=== PATIENT | female | born 1995 | race American Indian/Alaskan Native ===

== ENCOUNTER 2018-10-14 10:47 | Emergency (ER) | payer OTHER ==
[~2018-10-14] VITALS: Ht 182.9 cm; Wt 72.7 kg
--- OUTSIDE RECORDS SUMMARY | ~2018-10-14 | XMS | Clinical Summary ---
Demographics + + + | Address | [address] | | | [place] [address] | + + + | Home Phone | | + + + | Preferred Language | Unknown | + + + | Marital Status | Single | + + + | Yazidi Affiliation | NON | + + + | Race | White | + + + | Ethnic Group | Not or | + + + Author + + + | Author | [facility] | + + + | Organization | [facility] | + + + | Address | Unknown | + + + | Phone | Unavailable | + + + Support + + + + + | Name | Relationship | Address | Phone | + + + + + | Pamela Andrew | ECON | [address] | | | | | [place] [address] | | + + + + + Care Team Providers + +------+ + | Care Photograph Inspector Name | Role | Phone | + +------+ + | Fanny Jade MD | PP | | + +------+ + Source Comments TORIBIO is fully live on both [facility] Ambulatory and [facility] InPatient.[facility] Allergies No Known Allergies Current Medications + + +---------+---------+------+------+-------+ | Prescription | Sig. | Disp. | Refills | Star | End | Statu | | | | | | t | Date | s | | | | | | Date | | | + + +---------+---------+------+------+-------+ | INSULIN ASPART | Inject under the | | | | | Activ | | (NOVOLOG SUBQ) | skin (SUBC). | | | | | e | + + +---------+---------+------+------+-------+ | cholecalciferol, | Take 5,000 Units by | | | | | Activ | | Vitamin D3, 1,000 | mouth once daily. | | | | | e | | unit oral tablet | | | | | | | + + +---------+---------+------+------+-------+ | gabapentin 300 mg | Take 1 capsule by | 20 | 0 | 04/1 | | Activ | | oral capsule | mouth three times | capsule | | 8/20 | | e | | | daily. Double dose | | | 16 | | | | | in 1 week | | | | | | + + +---------+---------+------+------+-------+ | DULoxetine 60 mg | Take 60 mg by mouth | | | | | Activ | | oral capsule,delayed | two times daily. | | | | | e | | release(DR/EC) | | | | | | | + + +---------+---------+------+------+-------+ | pyridoxine, | Take 50 mg by mouth | | | | | Activ | | vitamin B6, 25 mg | two times daily. | | | | | e | | oral tablet | | | | | | | + + +---------+---------+------+------+-------+ | LORazepam 1 mg | Take 1 mg by mouth | | | 08/0 | | Activ | | oral tablet | once daily at | | | 920 | | e | | | bedtime. | | | 16 | | | + + +---------+---------+------+------+-------+ | nortriptyline 25 | Take 3 capsules by | | | 08/1 | | Activ | | mg oral capsule | mouth once daily at | | | 20 | | e | | | bedtime. | | | 16 | | | + + +---------+---------+------+------+-------+ | insulin aspart | Inject under the | | | | | Activ | | (NOVOLOG FLEXPEN) | skin (SUBC) three | | | | | e | | 100 unit/mL | times daily before | | | | | | | subcutaneous insulin | meals. Approx 20 | | | | | | | pen | units daily | | | | | | + + +---------+---------+------+------+-------+ | insulin degludec | Inject 27 Units | 10 mL | 11 | 09/04 | | Activ | | (TRESIBA FLEXTOUCH | under the skin | | | 08/22 | | e | | U-100) 100 unit/mL | (SUBC) once daily. | | | 18 | | | | (3 mL) subcutaneous | | | | | | | | insulin | | | | | | | | penIndications: | | | | | | | | Uncontrolled type 1 | | | | | | | | diabetes mellitus | | | | | | | | with hyperglycemia | | | | | | | | ([facility]) | | | | | | | + + +---------+---------+------+------+-------+ Active Problems + + + | Problem | Noted Date | + + + | Tachycardia | 03/14/2016 | + + + Family History + + +------+ + | Medical History | Relation | Name | Comments | + + +------+ + | Diabetes | Aunt | | | + + +------+ + + +------+--------+ + | Relation | Name | Status | Comments | + +------+--------+ + | Aunt | | | | + +------+--------+ + Social History + +-------+ +--------+------+ | Tobacco Use | Types | Packs/Day | Years | Date | | | | | Used | | + +-------+ +--------+------+ | Never Smoker | | | | | + +-------+ +--------+------+ + +---+---+---+ | Smokeless Tobacco: | | | | | Never Used | | | | + +---+---+---+ + + +---------+ + | Alcohol Use | Drinks/We | oz/Week | Comments | | | ek | | | + + +---------+ + | No | | | | + + +---------+ + + + + | Sex Assigned at | Date Recorded | | | | + + + | Not on file | | + + + Last Filed Vital Signs + + + + | Vital Sign | Reading | Time Taken | + + + + | Blood Pressure | 128/81 | 09/04/2016 1:34 PM PST | + + + + | Pulse | 120 | 09/04/2016 1:34 PM PST | + + + + | Temperature | 36.8 C (98.2 F) | 03/14/2016 3:08 PM PDT | + + + + | Respiratory Rate | 20 | 11/19/2015 8:34 PM PDT | + + + + | Oxygen Saturation | 98% | 03/14/2016 3:08 PM PDT | + + + + | Inhaled Oxygen | - | - | | Concentration | | | + + + + | Weight | 72.6 kg (160 lb) | 09/04/2016 1:34 PM PST | + + + + | Height | 180.3 cm (5' 11") | 09/04/2016 1:34 PM PST | + + + + | Body Mass Index | 22.32 | 09/04/2016 1:34 PM PST | + + + + Plan of Treatment + + + + + | Health Maintenance | Due Date | Last Done | Comments | + + + + + | PPSV PNEUMOCOCCAL | | | | | VACCINE | 7 | | | + + + + + | Influenza (Flu) | | | | | vaccination (#1) | 8 | | | + + + + + Results Not on filefrom Last 3 Months Insurance + +--------+ +--------+ + + | Payer | Benefi | Subscriber | Type | Phone | Address | | | t Plan | ID | | | | | | / | | | | | | | Group | | | | | + +--------+ +--------+ + + | [place] | [place] | xxxxxxxx | Medica | [phone] [address] [address] | | | PLUS | | id | [phone] | [place] [address] | | | OPEN | | | | | | | CARD | | | | | + +--------+ +--------+ + + | [facility] | [place] | [phone] | Agency | | | | SERVICE | | | | | | | | HEALTH | | | | | | | | | | | | | | SERVIC | | | | | | | E | | | | | + +--------+ +--------+ + + + +--------+ +--------+ + + | Guarantor Name | Accoun | Relation to | Date | Phone | Billing Address | | | t Type | Patient | of | | | | | | | | | | + +--------+ +--------+ + + | NADER DESAI | Person | Self | [birth year] Home: | [address] | | | al/Fam | | 1994 | [phone] | [place] | | | [place] | | | [phone] | + +--------+ +--------+ + +
--- OUTSIDE RECORDS SUMMARY | ~2018-10-14 | XMS | Clinical Summary ---
Demographics + + + | Address | [address] | | | [place] [address] | + + + | Home Phone | | + + + | Preferred Language | Unknown | + + + | Marital Status | Single | + + + | Hinduism Affiliation | NON | + + + [...] + | Pamela Andrew | ECON | [address] | | | | | [place] [address] | | + + + + + Care Team Providers + +------+ + | Care Supervisor Electric Name | Role | Phone | + +------+ + | Fanny Jade MD | PP | | + +------+ + Source Comments TORIBIO is fully live on both [facility] Ambulatory and [facility] InPatient.[facility] Allergies No Known Allergies Current Medications + [...] | | | | | | | ([facility]) | | | | | | | [...] | Medica | [phone] | [address] [address] | | | PLUS | | id | [phone] | [place] [address] | | | OPEN | | | | | | | CARD | | | | | + +--------+ +--------+ + + | [facility] | [place] | [phone] | Agency | | | [...] | Self | [birth year] | Home: | [address] | | | al/Fam | | 1994 | [phone] | [place] | | | [place] | | | [phone] | + +--------+ +--------+ + +
[~2018-10-14 10:47] MED LIST: ATIVAN1 MG PO; CYMBALTA60 MG PO; LEVAQUIN750 MG PO; LEVEMIR100 UNIT/1 SUB-Q; MAPAP500 M1 PO; NEURONTIN300 MG PO; NOVOLOG100 UNIT/1 SUB-Q; PAMELOR75 MG PO; PYRIDOXINE HCL50 MG PO
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
[2018-10-14] MEDS ORDERED: REGLAN10 MG PO (13:09)
== END 2018-10-14 13:22 | disposition home or self-care (01) ==
LOC: ED 10:47
DX: E10.65 Type 1 diabetes mellitus with hyperglycemia (principal); R11.2 Nausea with vomiting, unspecified; Z79.899 Other long term (current) drug therapy
CPT/HCPCS: 80053; 81001; 82010; 82150; 82803; 83690; 84703; 85025; 96365; 96375; 96376; 99284-25; J1815; J2765; J7030

== ENCOUNTER 2018-11-24 19:04 | Observation (INO) | payer OTHER ==
[~2018-11-24] VITALS: Ht 182.9 cm; Wt 71.1 kg
--- OUTSIDE RECORDS SUMMARY | ~2018-11-24 | XMS | Encounter Summary ---
Demographics + + + | Address | [address] | | | [place] [address] | + + + | Home Phone | | + + + | Preferred Language | Unknown | + + + | Marital Status | Single | + + + | Tenriism Affiliation | NON | + + + | Race | White | + + + | Ethnic Group | Not or | + + + Author + + + | Author | [facility] | + + + | Organization | [facility] | + + + | Address | Unknown | + + + | Phone | Unavailable | + + + Support + + + + + | Name | Relationship | Address | Phone | + + + + + | Pamela Andrew | ECON | [address] | | | | | [place] [address] | | + + + + + Care Team Providers + +------+ + | Care Litigation Specialist Name | Role | Phone | + +------+ + | Fanny Jade MD | PCP | | + +------+ + Reason for Visit + + + | Reason | Comments | + + + | Refill Request | [facility] | + + + Encounter Details +--------+--------+ + + + | Date | Type | Department | Care Team | Description | +--------+--------+ + + + | 11/23/ | Refill | Harry Le | Josephine Nichols MD | Refill Request | | 2019 | | [facility] | [address] | ([facility] ) | | | | Center at [facility] | [address] [facility], | | | | | Pav[address] | [place] [address] | | | | | [facility] | [phone] | | | | | Road Physicians | | | | | | [address] | | | | | | Physicians Pavilion | | | | | | [place], [place] | | | | | | [address] | | | | | | [phone] | | | +--------+--------+ + + + Social History + +-------+ +--------+------+ | [...] on file | | + + + as of this encounter Plan of Treatment Not on fileas of this encounter Visit Diagnoses + + | Diagnosis | + + | Uncontrolled type 1 diabetes mellitus with hyperglycemia (HCC) | + +"
--- OUTSIDE RECORDS SUMMARY | ~2018-11-24 | XMS | Encounter Summary ---
Demographics + + + | Address | [address] | | | [place] [address] | + + + | Home Phone | | + + + | Preferred Language | Unknown | + + + | Marital Status | Single | + + + | Denominational Affiliation | NON | + + + | Race | White | + + + | Ethnic Group | Not or | + + + Author + + + | Author | [facility] | + + + | Organization | [facility] | + + + | Address | Unknown | + + + | Phone | Unavailable | + + + Support + + + + + | Name | Relationship | Address | Phone | + + + + + | Pamela Andrew | ECON | [address] | | | | | [place] [address] | | + + + + + Care Team Providers + +------+ + | Care Mma Fighter Name | Role | Phone | + [...] 2019 | | [facility] | [address] [facility] | (TRESIBA FLEXTOUCH ) | | | | Center at [facility] | Park [facility], | | | | | Pav[address] | [place] [address] | | | | | [facility] | [phone] | | | | | Road Physicians | | | | | | [address] | | | | | | Physicians Pavilion | | | | | | [place], [place] | | | | | | [address] | | | | | | [phone] | | | +--------+--------+ + + + [...]
--- OUTSIDE RECORDS SUMMARY | ~2018-11-24 | XMS | Clinical Summary ---
Demographics + + + | Address | [address] | | | [place] [address] | + + + | Home Phone | | + + + | Preferred Language | Unknown | + + + | Marital Status | Single | + + + | Anglican Affiliation | NON | + + + [...] + | Pamela Andrew | ECON | [address] | | | | | [place] [address] | | + + + + + Care Team Providers + +------+ + | Care Cloth Examiner Name | Role | Phone | + +------+ + | Fanny Jade MD | PP | | + +------+ + Source Comments TORIBIO is fully live on both [facility] Ambulatory and [facility] InPatient.[facility] Allergies No Known Allergies Current Medications + [...] insulin degludec | Inject 27 Units | 15 mL | 0 | 04/2 | | Activ | | (TRESIBA FLEXTOUCH | under the skin | | | /20 | | e | | U-100) 100 unit/mL | (SUBC) once daily. | | | 19 | | | | (3 mL) subcutaneous [...] | | | | | | | ([facility]) | | | | | | | + + +---------+---------+------+------+-------+ Active Problems + + + | Problem | Noted Date | + + + | Tachycardia | 03/14/2016 | + + + Encounters +--------+--------+ + + + | Date | Type | Specialty | Care Team | Description | +--------+--------+ + + + | 11/23/ | Refill | | Josephine Nichols MD | Refill Request | | 2018 | | | | ([facility] ) | +--------+--------+ + + + from Last 3 Months Family History + + +------+ + | [...] | Medica | [phone] | [address] [address] | | | PLUS | | id | [phone] | [place] [address] | | | OPEN | | | | | | | CARD | | | | | + +--------+ +--------+ + + | [facility] | | [phone] | Agency | | | [...] | Self | [birth year] | Home: | [address] | | | [place] | | 1994 | [phone] | [place] | | | [place] | | | [phone] | + +--------+ +--------+ + +
--- OUTSIDE RECORDS SUMMARY | ~2018-11-24 | XMS | Encounter Summary ---
Demographics + + + | Address | [address] | | | [place] [address] | + + + | Home Phone | | + + + | Preferred Language | Unknown | + + + | Marital Status | Single | + + + | Hindu Affiliation | NON | + + + | Race | White | + + + | Ethnic Group | Not or | + + + Author + + + | Author | [facility] | + + + | Organization | [facility] | + + + | Address | Unknown | + + + | Phone | Unavailable | + + + Support + + + + + | Name | Relationship | Address | Phone | + + + + + | Pamela Andrew | ECON | [address] | | | | | [place] [address] | | + + + + + Care Team Providers + +------+ + | Care Continuous Improvement Engineer Name | Role | Phone | + [...] 2019 | | [facility] | [address] [facility] | (TRESIBA FLEXTOUCH ) | | | | Center at [facility] | Park [facility], | | | | | Pav[address] | [place] [address] | | | | | [facility] | [phone] | | | | | Road Physicians | | | | | | [address] | | | | | | Physicians Pavilion | | | | | | [place], [place] | | | | | | [address] | | | | | | [phone] | | | +--------+--------+ + + + [...]
--- OUTSIDE RECORDS SUMMARY | ~2018-11-24 | XMS | Clinical Summary ---
Demographics + + + | Address | [address] | | | [place] [address] | + + + | Home Phone | | + + + | Preferred Language | Unknown | + + + | Marital Status | Single | + + + | Moravian Affiliation | NON | + + + [...] + | Pamela Andrew | ECON | [address] | | | | | [place] [address] | | + + + + + Care Team Providers + +------+ + | Care Crm Solution Architect Name | Role | Phone | + +------+ + | Fanny Jade MD | PP | | + +------+ + Source Comments TORIBIO is fully live on both [facility] Ambulatory and [facility] InPatient.[facility] Allergies No Known Allergies Current Medications [...] | | | | | ([facility]) | | | | | | | [...] | Medica | [phone] | [address] [address] | | | PLUS | | id | [phone] | [place] [address] | | | OPEN | | | | | | | CARD | | | | | + +--------+ +--------+ + + | [facility] | | [phone] | Agency | [...] | Self | [birth year] | Home: | [address] | | | [place] | | 1994 | [phone] | [place] | | | [place] | | | [phone] | [phone] | + +--------+ +--------+ + +
--- OUTSIDE RECORDS SUMMARY | ~2018-11-24 | XMS | Clinical Summary ---
Demographics + + + | Address | [address] | | | [place] [address] | + + + | Home Phone | | + + + | Preferred Language | Unknown | + + + | Marital Status | Single | + + + | Orthodox Affiliation | NON | + + + [...] + | Pamela Andrew | ECON | [address] | | | | | [place] [address] | | + + + + + Care Team Providers + +------+ + | Care Guest Services Ambassador Name | Role | Phone | + +------+ + | Fanny Jade MD | PP | | + +------+ + Source Comments TORIBIO is fully live on both [facility] Ambulatory and [facility] InPatient.[facility] Allergies No Known Allergies Current [...] | | | | | | | ([facility]) | | | | | | [...] | Medica | [phone] | [address] [address] | | | PLUS | | id | [phone] | [place] [address] | | | OPEN | | | | | | | CARD | | | | | + +--------+ +--------+ + + | [facility] | | [phone] | Agency | [...] | Self | [birth year] | Home: | [address] | | | [place] | | 1994 | [phone] | [place] | | | [place] | | | [phone] | + +--------+ +--------+ + +
[~2018-11-24 19:04] MED LIST changes: +REGLAN10 MG PO
--- NOTE | 2018-11-24 22:30 | NUR ---
Patient arrived to unit via stretcher. Patient transfered self to bed with SBA. Alert and oriented x4, drowsy. HR elevated in 120s and 130s, denies feeling SOB or light-headed. Patien is tachypneic with RR between 26 and 34, shallow breaths, lungs are clear throughout all finley, 100% on room air. Reports 6/10 abdominal pain and nausea, PRN IV reglan given per EMAR. Skin intact, abrasion noted to right hand, scabbed over. IV site intact, IVF infusing at 250 cc/hr per order, insulin gtt infusing at 3.6 units/hr from ED.
--- NOTE | 2018-11-24 23:30 | NUR ---
CBG 333, insulin gtt titrated to 2.5 units/hr. Denies needs at this time, HR remains between 110 and 120. Call light within reach.
--- NOTE | 2018-11-25 00:01 | NUR ---
PT RETCHING IN BED, C/O NAUSEA, DISCUSSED WITH PT'S PRIMARY RN STACI, PRN ATIVAN GIVEN PER EMAR RELATED TO NAUSEA, PT RESTING IN BED, VSS, ON RA, IV FLUIDS/INSULIN DRIP INFUSING PER EMAR WNL, PT AOX4, CALL LIGHT WITHIN REACH. FALL PRECAUTIONS IN PLACE. FAMILY AT BEDSIDE.
--- NOTE | 2018-11-25 00:30 | NUR ---
CBG 259, insulin gtt titrated to 2.1 units/hr. Patient remains resftul with eyes closed. Assessment done, no changes from previous, HR remains between 110 and 120. Reports that abdominal pain and nausea are improved, denies needs at this time. Call light within reach.
--- NOTE | 2018-11-25 01:30 | NUR ---
CBG 246, insulin gtt titrated to 1.7 units/hr. Patient is restful with eyes closed, breathing is even and unlabored, heart rate remains between 110 and 120. Denies needs at this time. Call light within reach.
--- NOTE | 2018-11-25 02:30 | NUR ---
Patient ambulated to bathroom with SBA, gait steady. Now resting in bed again, breathing is even and unlabored. HR elevated to 150s and 160s with ambulation, denies feeling light-headed, denies SOB with activity. CBG was 186, insulin gtt titrated to 1.2 units/hr, switching IVF to D5% 1/2 NS with 20 of potassium at 250 cc/hr per order. Patient states that abdominal pain is improving slowly, also reports mild nausea. Denies needs at this time. Call light within reach.
--- NOTE | 2018-11-25 03:30 | NUR ---
Updated Dr. Pittman about patient's 0200 labs, IVF to be changed to D5% 1/2NS at 250 cc/hr. CBG was 222, insulin gtt titrated to 3.4 units/hr, also gave PRN reglan IV for nausea. Patient denies further needs. Call light within reach.
--- NOTE | 2018-11-25 04:38 | NUR ---
Patient restful with eyes closed, breathing is even and unlaobred, HR 117. CBG 233, insulin gtt titrated to 5.1 units/hr. Call light within reach.
--- NOTE | 2018-11-25 05:38 | NUR ---
CBG 235, insulin gtt titrated to 6.8 units/hr, patient remains restful with eyes closed. Call light within each, IVF infusing per order.
--- NOTE | 2018-11-25 09:00 | NUR ---
in to do pts case management assessment, pt sleeping. will return later.
--- NOTE | 2018-11-25 11:57 | NUR ---
IN TO SPEAK WITH PT, PT CONTINUES TO SLEEP. SPOKE WITH PTS SIGNIFICANT OTHER. SHE DENIES ANY NEEDS AT HOME. STATES THAT THE NURSING STAFF HAVE GOTTEN HER ALL OF THE MEDICATIONS SHE WILL NEED AT HOME.
[2018-11-25] MEDS ORDERED: NOVOLOG100 UNIT/1 SUB-Q (12:24)
[2018-11-25] MEDS ORDERED: TRESIBA100 UNIT/1 SUB-Q (12:25)
[2018-11-25] MEDS ORDERED: INSULIN SYRING1 EA25 MISC (12:25)
== END 2018-11-25 13:50 | disposition home or self-care (01) ==
LOC: ED 19:04 → CCU 19:05
PROVIDERS: ADMIT Internal Medicine
DX: E10.10 Type 1 diabetes mellitus with ketoacidosis without coma (principal); E10.42 Type 1 diabetes mellitus with diabetic polyneuropathy; Z88.8 Allergy status to other drugs, medicaments and biological substances; Z79.4 Long term (current) use of insulin; Z79.899 Other long term (current) drug therapy
CPT/HCPCS: 36415; 80048; 80053; 81001; 82010; 82800; 83036; 83690; 83735; 84703; 85025; 96361; 96372; 96374; 96375; 96376; 99285-25; C9113; G0378; J1170; J1200; J1650; J1815; J2060; J2765; J7030; J7042; J7120

== ENCOUNTER 2019-08-19 08:04 | Emergency (ER) | payer OTHER ==
[~2019-08-19] VITALS: Ht 182.9 cm; Wt 71.1 kg
[~2019-08-19 08:04] MED LIST changes: +INSULIN SYRING1 EA25 MISC; +TRESIBA100 UNIT/1 SUB-Q
[2019-08-19] MEDS ORDERED: REGLAN10 MG PO (13:38)
== END 2019-08-19 14:40 | disposition home or self-care (01) ==
LOC: ED 08:04
DX: K29.00 Acute gastritis without bleeding (principal); E11.9 Type 2 diabetes mellitus without complications; Z88.8 Allergy status to other drugs, medicaments and biological substances; Z79.899 Other long term (current) drug therapy; Z79.4 Long term (current) use of insulin
CPT/HCPCS: 76705; 96361; 99284-25; C9113; J1815; J2060; J2765; J7030

== ENCOUNTER 2019-09-11 14:12 | Observation (INO) | payer OTHER ==
[~2019-09-11] VITALS: Ht 182.9 cm; Wt 71.0 kg
--- OUTSIDE RECORDS SUMMARY | 2019-09-11 14:16 | XMS ---
PreManage Notification: NADER DESAI Security Merchandise Presentation Associate Events No recent Security Events currently on file CRITERIA MET - [facility] - 2 Visits in 30 Days CARE PROVIDERS [facility] Primary [facility] PHONE: Unknown [facility] Primary Care 08/27/2015-Current PHONE: [phone] [facility] Care 12/01/2015-[facility] PHONE: Unknown Edi has no Care Guidelines for this patient. E.D. VISIT COUNT (12 MO.) 3 [place] Mal[place] 4 BORIS Velasquez TOTAL 7 NOTE: Visits indicate total known visits. ED/UCC VISIT TRACKING (12 MO.) 09/11/2019 14:13 [place] TYPE: Emergency COMPLAINT: - SWALLOWING PROBLEM, NAUSEA 08/19/2019 08:04 [place] TYPE: Emergency COMPLAINT: - VOMITING DIAGNOSES: - 1 Type 2 diabetes mellitus without complications - Nausea with vomiting, unspecified - Acute gastritis without bleeding - assisted (current) use of insulin - Other rodent exterminator (current) drug therapy - Allergy status to oth drug/meds/biol subst status 05/15/2019 17:57 [place] TYPE: Emergency DIAGNOSES: - 1 Type 2 diabetes mellitus with ketoacidosis without coma 01/12/2019 13:04 [place] TYPE: Emergency DIAGNOSES: - M82 nausea vomiting - Oth diabetes mellitus with ketoacidosis without coma 11/24/2018 19:04 [place] TYPE: Emergency COMPLAINT: - ABD PAIN/NAUSEA 10/14/2018 10:47 [place] TYPE: Emergency COMPLAINT: - ABD PAIN/VOMITING DIAGNOSES: - Nausea with vomiting, unspecified - Other rodent exterminator (current) drug therapy - 1 Type 1 diabetes mellitus with hyperglycemia 09/15/2018 18:31 [place] TYPE: Emergency DIAGNOSES: - Gastritis, unspecified, without bleeding - Vomiting since this am. CBG 300's. Abdominal pain. Feels like early DKA. Diabetic. - Hyperglycemia, unspecified INPATIENT VISIT TRACKING (12 MO.) 05/15/2019 17:57 [place] TYPE: Inpatient DIAGNOSES: - 1 Type 2 diabetes mellitus with ketoacidosis without coma 11/24/2018 19:05 [place] TYPE: Observation COMPLAINT: - DKA DIAGNOSES: - 1 Type 1 diabetes mellitus with ketoacidosis without coma - 1 Type 1 diabetes mellitus with diabetic polyneuropathy - Allergy status to oth drug/meds/biol subst status - Other correction (current) drug therapy - assisted (current) use of insulin - Generalized abdominal pain [email or web address]
--- NOTE | 2019-09-11 17:40 | NUR ---
PT ARRIVED FROM EMERGENCY DEPARTMENT FOR DEHYDRATION AND TACHYCARDIA. INTAKE ASSESSMENT DONE. PT DROWSY BUT INERATCTIVE. PT REPORTS 5/10 PAIN IN STOMACH AND NAUSEA. SEE MAR FOR MEDICATION GIVEN. IV FLUIDS STARTED. PT OFFERED DINNER. PT DECLINES BUT REQUESTS JELLOW AND CHICKEN BROTH. PROVIDED REQUESTED. PT WATCHING TV WITH SIGNIFICANT OTHER. NO ADDITIONAL REQUESTS OR COMPLAINTS AT THIS TIME. CALL LIGHT WITHIN REACH. BED RAILS UP. PT ORIENTED TO ROOM AND DEMONSTRATES USE OF CALL LIGHT.
--- NOTE | 2019-09-11 18:19 | NUR ---
PT ARRIVED FROM EMERGENCY ROOM THIS SHIFT FOR DEHYDRATION AND TACHYCARDIA. SLIDING SCALE INSULIN WITH BLOOD SUGAR CHECKS. PT TOLERATING 60G CARB DIET WITH MINIMAL INTAKE THIS SHIFT. IV AND PO HYDRATION. PO ABX STARTED. PRN NAUSEA MEDICATIONS GIVEN IN EMERGENCY ROOM AND ON MED/SURG. PTS SIGNIFCANT OTHER AT BEDSIDE. PT USES CALL LIGHT APPROPRIATLY.
--- NOTE | 2019-09-11 18:21 | NUR ---
PT CALL LIGHT ON. PT REQUESTS ADDITIONAL CHICKEN BROTH. PROVIDED REQUESTED. NO ADDITIONAL REQUESTS OR COMPLAINTS. PT WATCHING TV. CALL LIGHT WITHIN REACH. BED RAILS UP.
--- NOTE | 2019-09-11 19:30 | NUR ---
REPORT RECEIVED FROM GARRICK ARITA. pt RESTING IN BED EYES CLOSED. BREATHING UNLABORED. IVF INFUSING ORDERED.
--- NOTE | 2019-09-11 20:51 | NUR ---
VITALS AND I&OS DONE AND CHARTED. BEDSIDE TABLE AND CALL LIGHT IN REACH. FRESH ICE WATER GIVEN. PT NEEDS NOTHING MORE AT THIS TIME.
--- NOTE | 2019-09-11 20:59 | NUR ---
pt SLEEPING, AWAKENS TO VOICE. VSS. DENIES PAIN, DENIES NAUSEA. pt DENIES TOILETING NEEDS. VERBALIZES UNDERSTANDING TO USE CALL LIGHT TO GET OUT OF BED. IVF INUSING WNL ORDERED. CBG 142, SS INSULIN ADMINISTERED. SNACK PROVIDED. CALL LIGHT IN REACH.
--- NOTE | 2019-09-11 23:00 | NUR ---
CHECKED ON pt. RESTING IN BED WITH EYES CLOSED, BREATHING UNLABORED. IVF INFUSING WNL ORDERED.
--- NOTE | 2019-09-12 01:23 | NUR ---
pt SLEEPING, AWAKENS TO VOICE. VSS. pt DENIES URGE TO VOID, SBA TO RESTROOM FOR VOID, UNABLE TO VOID. BLADDER SCAN 525. IVF INFUSING WNL ORDERED. PO FLUIDS ENCOURAGED, PROVIDED. ASSESSMENT COMPLETE. DENIES NAUSEA, DENIES PAIN. CALL LIGHT IN REACH.
--- NOTE | 2019-09-12 03:36 | NUR ---
CALL LIGHT ANSWERED, PRN NAUSEA MEDICATION ADMINISTERED. CBG 141. pt DENIES TOILETING NEEDS STATES "I FEEL LIKE I WILL GET UP IN A MINUTE." IVF INFUSING WNL ORDERED. CALL LIGHT IN REACH.
--- NOTE | 2019-09-12 05:36 | NUR ---
VITALS AND I&OS DONE AND CHARTED. HELPED PT TO THE BATHROOM AND BACK TO BED. EMPTIED GARBAGES. BEDSIDE TABLE AND CALL LIGHT IN REACH.
--- NOTE | 2019-09-12 05:47 | NUR ---
pt AWAKE, RESTING IN BED. SCHEDULED MEDICATION ADMINISTERED. IVF INFUSING WNL ORDERED. NO REQUESTS AT THIS TIME.
--- NOTE | 2019-09-12 06:04 | NUR ---
pt SLEPT WELL THROUGHOUT SHIFT. SBA TO RESTROOM FOR QS VOID. IVF INFUSING WNL THROUGHOUT SHIFT. CBGS 142, 141. ONE COMPLAINT OF NAUSEA, PRN MEDICATION ADMINISTERED. NO EMESIS. TOLERATING 60 G CARB DIET.
--- NOTE | 2019-09-12 07:25 | NUR ---
PT SLEEPING, RESP EVEN AND NON LABORED. PT HAS NO NOTABLE DISTRESS. SIGNIFICANT OTHER SLEEPING AT BEDSIDE ON COUCH. NO NEEDS AT THIS TIME.
--- NOTE | 2019-09-12 07:30 | NUR ---
PATIENT SLEEPING. GIRLFRIEND IN ROOM. CALL LIGHT WITHIN REACH. NO OTHER NEEDS AT THIS TIME
--- NOTE | 2019-09-12 09:27 | NUR ---
PATIENT SITTING UP IN BED. GIRLFRIEND IN ROOM. VITAL SIGNS AND I&O DONE. PATIENT REFUSED TO TAKE A SHOWER TODAY. CALL LIGHT WITHIN REACH. NO OTHER NEEDS AT THIS TIME
[2019-09-12] MEDS ORDERED: AZITHROMYCIN250 MG PO (10:46)
== END 2019-09-12 11:50 | disposition home or self-care (01) ==
LOC: ED 14:12 → MS 14:14
PROVIDERS: ADMIT Internal Medicine
DX: E86.0 Dehydration (principal); R00.0 Tachycardia, unspecified; R11.2 Nausea with vomiting, unspecified; K12.2 Cellulitis and abscess of mouth; Z88.8 Allergy status to other drugs, medicaments and biological substances; Z79.4 Long term (current) use of insulin; Z79.899 Other long term (current) drug therapy; Z91.14 Patient's other noncompliance with medication regimen
CPT/HCPCS: 36415; 51798; 80048; 80053; 81001; 82010; 82803; 84703; 85025; 87880; 96361; 96374; 96375; 99285-25; G0378; J1100; J1200; J1815; J2765; J7030

== ENCOUNTER 2019-09-17 11:43 | Emergency (ER) | payer OTHER ==
[~2019-09-17] VITALS: Ht 182.9 cm; Wt 71.1 kg
[~2019-09-17 11:43] MED LIST changes: +AZITHROMYCIN250 MG PO
--- OUTSIDE RECORDS SUMMARY | 2019-09-17 11:46 | XMS ---
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 Primary Care 08/27/2015-Current PHONE: [phone] [facility] Care 12/01/2015-[facility] PHONE: Unknown Edi has no Care Guidelines for this patient. E.D. VISIT COUNT (12 MO.) 2 Ashley Malone 5 BORIS [place]. TOTAL 7 NOTE: Visits indicate total known visits. ED/UCC VISIT TRACKING (12 MO.) 09/17/2019 11:44 [place] TYPE: Emergency COMPLAINT: - NAUSEA, STOMACHE PAIN 09/11/2019 14:13 [place] TYPE: Emergency COMPLAINT: - SWALLOWING PROBLEM, NAUSEA 08/19/2019 08:04 [place] TYPE: Emergency COMPLAINT: - VOMITING DIAGNOSES: - 1 Type 2 diabetes mellitus without complications - Nausea with vomiting, unspecified - Acute gastritis without bleeding - button puncher (current) use of insulin - Other correction (current) drug therapy - Allergy status to ot drug/meds/biol subst status 05/15/2019 17:57 Ashley FER[place] [...] - Nausea with vomiting, unspecified - Other barrel endshake adjuster (current) drug therapy - 1 Type 1 diabetes mellitus with hyperglycemia INPATIENT VISIT TRACKING (12 MO.) 09/11/2019 14:14 [place] [place] TYPE: Observation COMPLAINT: - DEHYDRATION/TACHYCARDIA DIAGNOSES: - Other correction (current) drug therapy - Dehydration - alf (current) use of insulin - Cellulitis and abscess of mouth - Tachycardia, unspecified - Nausea with vomiting, unspecified - Allergy status to oth drug/meds/biol subst status - Patient's other noncompliance with medication regimen 05/15/2019 17:57 [place] TYPE: Inpatient DIAGNOSES: - 1 Type 2 diabetes mellitus with ketoacidosis without coma 11/24/2018 19:05 [place] [place] TYPE: Observation COMPLAINT: - DKA DIAGNOSES: - 1 Type 1 diabetes mellitus with ketoacidosis without coma - 1 Type 1 diabetes mellitus with diabetic polyneuropathy - Allergy status to oth drug/meds/biol subst status - Other correction (current) drug therapy - alf (current) use of insulin - Generalized abdominal pain [email or web address]
== END 2019-09-17 17:17 | disposition home or self-care (01) ==
LOC: ED 11:43
DX: R11.15 Cyclical vomiting syndrome unrelated to migraine (principal); E10.9 Type 1 diabetes mellitus without complications; Z88.8 Allergy status to other drugs, medicaments and biological substances; Z79.899 Other long term (current) drug therapy
CPT/HCPCS: 80053; 82010; 85025; 87502; 96361; 96374; 96375; 96376; 99284-25; J1630; J1815; J2765; J7121

== ENCOUNTER 2020-03-16 13:02 | Inpatient (IN) | payer OTHER ==
[~2020-03-16] VITALS: Ht 182.9 cm; Wt 73.0 kg
--- OUTSIDE RECORDS SUMMARY | 2020-03-16 13:06 | XMS ---
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 Edi has no Care Guidelines for this patient. Care History Medical/Surgical 09/19/2019 [facility] - CHW CALLED PATIENT 2X-LEFT PATIENT A VOICEMAIL. - PATIENT DOES NOT HAVE A PCP- CHW WOULD LIKE TO ASSIST PATIENT WITH PCP SET UP. - PLEASE PROVIDE CHWGLEN- CONTACT NUMBER TO PATIENT [phone]. - NO PCP LETTER SENT TO PATIENT E.D. VISIT COUNT (12 MO.) 1 [facility] 4 [facility]. TOTAL 5 NOTE: Visits indicate total known visits. ED/UCC VISIT TRACKING (12 MO.) 03/16/2020 13:03 [place] [place] TYPE: Emergency COMPLAINT: - NAUSEA/VOMITING, BLOOD SUGAR PROBLEM 09/17/2019 11:44 [facility] [place]: Emergency COMPLAINT: - NAUSEA, STOMACHE PAIN DIAGNOSES: - Other custodial (current) drug therapy - Nausea with vomiting, unspecified - Cyclical vomiting syndrome unrelated to migraine - Type 1 diabetes mellitus without complications - Allergy status to other drugs, medicaments and biological sub 09/11/2019 14:13 [place] [place] TYPE: Emergency COMPLAINT: - SWALLOWING PROBLEM, NAUSEA 08/19/2019 08:04 [place] [place] TYPE: Emergency COMPLAINT: - VOMITING DIAGNOSES: - Type 2 diabetes mellitus without complications - Nausea with vomiting, unspecified - Acute gastritis without bleeding - roasterman (current) use of insulin - Other roasterman (current) drug therapy - Allergy status to other drugs, medicaments and biological sub 05/15/2019 17:57 [place] TYPE: Emergency DIAGNOSES: - Type 2 diabetes mellitus with ketoacidosis without coma INPATIENT VISIT TRACKING (12 MO.) 09/11/2019 14:14 [place] [place] TYPE: Observation COMPLAINT: - DEHYDRATION/TACHYCARDIA DIAGNOSES: - Other roasterman (current) drug therapy - Dehydration - roasterman (current) use of insulin - Cellulitis and abscess of mouth - Tachycardia, unspecified - Nausea with vomiting, unspecified - Allergy status to other drugs, medicaments and biological sub - Patient's other noncompliance with medication regimen 05/15/2019 17:57 [place] TYPE: Inpatient DIAGNOSES: - Type 2 diabetes mellitus with ketoacidosis without coma [email or web address]
--- NOTE | 2020-03-16 21:00 | NUR ---
PATIENT ARRIVED VIA STRECTHER FROM ED. PATIENT INDEPENDENTLY TRANSFERED TO THE BED. INSULIN DRIP INFUSING AT 5 UNIT/HR PER PROTOCOL STARTED IN ED. PATIENT'S HR ELEVATED 125, PATIENT REPORTS THIS IS HER BASELINE. REPORTS MINIMAL ABD PAIN. BELIEVES IT MIGHT BE RELATED TO HER VOMITING THE LAST 2 DAYS. THROAT IS ALSO SORE.
--- NOTE | 2020-03-16 21:30 | NUR ---
IV ABX STARTED PER ORDER. PATIENT REPORTS NAUSEA AND REQUEST PRN ATIVAN WHICH WAS PROVIDED. LOZENGE PROVIDED FOR SORE THROAT. PATIENT RESTING IN BED ON PHONE WITH HER PARTNER. DENIED ANY FURTHER NEEDS.
--- NOTE | 2020-03-16 22:00 | NUR ---
PARALLEL COMPUTING SOFTWARE ENGINEER ASSISTED PATIENT UP TO THE BATHROOM, UNMEASURED VOID. PATIENT REPORTS IMPROVEMENT IN HER NAUSEA AT THIS TIME. IV BOLUS INFUSING PER ORDER, SITE WNL. INSULIN TITRATED PER PROTOCOL.
--- NOTE | 2020-03-16 23:00 | NUR ---
PATIENT IS DRY HEAVYING. REPORTS IMPROVMENT WITH THE REGLAN WHILE IN THE ED. DISCUSSED WITH . REGLAN PRN ORDERED. SEE EMAR.
--- NOTE | 2020-03-17 00:42 | NUR ---
PATIENT IS NOW SLEEPING SOUNDLY. WOKE BRIFLY DURING LAST ACCU CHECK. VS STABLE. IV SITE WNL.
--- NOTE | 2020-03-17 03:19 | NUR ---
INSULIN INFUSION TITRATED VIA PROTOCOL. PATIENT HAS BEEN SLEEPING OFF AND ON. REPORTS IMPROVED NAUSEA. REQUESTING SOMETHING TO DRINK. ICE CHIPS PROVIDED. ENCOURAGED PATIENT TO REST AND WILL REEVALUATE DIET ORDER WITH MD IN THE MORNING. PATIENT DENIED OTHER NEEDS. IV FLUIDS PER ORDER, SITE WNL.
--- NOTE | 2020-03-17 04:00 | NUR ---
PATIENT SLEEPING SOUNDLY. WOKE EASILY TO VOICE. DENIES ANY NAUSEA OR PAIN AT THIS TIME. INSULIN TITRATED PER PROTOCOL. IV FLUIDS PER ORDER, SITES WNL X2. PATIENT DENIES NEED TO VOID. VS STABLE. CALL LIGHT IN REACH.
--- NOTE | 2020-03-17 06:42 | NUR ---
PATIENT UP TO THE BATHROOM WITH SBA FROM DEHYDRATOR TENDER. PATIENT VOIDED 700 MLS. RETURNED TO BED. PATIENT TOLERATED ACTIVITY WELL.
--- NOTE | 2020-03-17 07:12 | NUR ---
PATIENT REPORTS NAUSEA AND HAD SOME MILD DRY HEAVING. PATIENT REQUEST PRN MEDS. PRN ATIVAN AND A LOZENGE PROVIDED.
--- NOTE | 2020-03-17 08:20 | NUR ---
Pt sleeping, she responds to voice and quickly falls back to sleep. CBG at 0800 is 164 and her insulin gtt rate remains at 2.4 with the column being unchanged. VSS and no new problems noted at this time. See assessment.
--- NOTE | 2020-03-17 09:42 | NUR ---
PT COMPLAINS OF NAUSEA AND HAD ABOUT 15 ML OF GREEN EMESIS. PT MEDICATED FOR THE NAUSEA AT THIS TIME.
--- NOTE | 2020-03-17 10:27 | NUR ---
Pt appears to be sleeping.
--- NOTE | 2020-03-17 11:46 | NUR ---
Pt continues sleeping at this time.
--- NOTE | 2020-03-17 12:08 | NUR ---
PT AWOKE TO VOICE AND DENIES ANY PAIN OR PROBLEMS AT THIS TIME. LAST CBG 145 AND INSULIN GTT CHANGED ORDERED, SEE EMAR. PT ALSO STATES SHE HAS NO NAUSEA AT THIS TIME.
--- NOTE | 2020-03-17 12:12 | NUR ---
notified of the pt's urine output. Will continue to monitor.
--- NOTE | 2020-03-17 12:49 | NUR ---
Pt continues resting in her bed and she denies any pain or nausea at this time.
--- NOTE | 2020-03-17 13:12 | NUR ---
Pt states she has a sore throat and was given a cepocal as ordered. She denies other problems at this time.
--- NOTE | 2020-03-17 14:40 | NUR ---
1430; IV FLUID AND IV INSULIN STOPPED ORDERED.
--- NOTE | 2020-03-17 15:14 | NUR ---
PT SLEEPING AT THIS TIME.
--- NOTE | 2020-03-17 17:14 | NUR ---
PT HAS TAKEN SEVERAL DRINKS OF WATER BUT DID NOT EAT ANY OF HER LUNCH. SHE STATES SHE IS GOING TO LATER AND REQUESTED THAT HER FOOD NOT BE TAKEN. CBG 238 AND HER MD NOTIFIED AND WAS GIVEN THE ORDERED SLIDING SCALE. WILL CONTINUE TO CLOSLY MONITOR CBG. PT REMAINS DROWSY AND HAS SLEPT THE BETTER PART OF THIS SHIFT AND QUICKLY FELL BACK TO SLEEP FOLLOWING THIS ASSESSMENT.
--- NOTE | 2020-03-17 17:24 | EKG ---
[facility] [address] [place], [place] [address] Signed Sinus tachycardia Possible Left atrial enlargement Borderline ECG Confirmed by MACRINA SOLIZ DO ([id number]) on 03/17/2020 5:24:33 PM Electronically Signed By: MACRINA SOLIZ DO 03/17/20 1724 PATIENT NAME: NADER DESAI Electrocardiogram DATE OF : [birth year] PHYSICIAN: MACRINA SOLIZ DO REPORT #: [id number] REPORT IS CONFIDENTIAL AND NOT TO BE RELEASED WITHOUT AUTHORIZATION
--- NOTE | 2020-03-17 18:51 | NUR ---
GARRICK BRAN, TRANSFERRED PATIENT TO ROOM 114, REPORT RECIEVED. PATIENT IS SITTING UP TO CHAIR, DENIES NEEDS. VITALS ARE STABLE.
--- NOTE | 2020-03-17 19:11 | NUR ---
184: Pt transfered to med-surg room 114 and report given to Crystal MCCAULEY. 1899: Report also given to Celia MCCAULEY the on coming nurse for supervisor powdered sugar.
--- NOTE | 2020-03-17 19:43 | NUR ---
gave pt fresh ice water
--- NOTE | 2020-03-17 22:00 | NUR ---
took pt vitals
--- NOTE | 2020-03-17 22:21 | NUR ---
comfortable, watching tv, no c/o pain, on room air, 2 sl patent
--- NOTE | 2020-03-17 22:48 | NUR ---
CALL LIGHT ANSWERED. PATIENT C/O HURTING AND THROW UP A LITTLE BIT. PRIMARY RN NOTIFIED.
--- NOTE | 2020-03-17 22:55 | NUR ---
DR GONZALEZ NOTIFIED OF PTS HX OF OCASSIONAL TACHYCHARDIA AND OF NO VOIDING STATES"SHE HAS BEEN DOING THIIS SINCE SHE WAS ADMITTED, NO NEED TO NOTIFY ME WITH HER URINARY OUTPUT
--- NOTE | 2020-03-17 23:18 | NUR ---
pt in bed watching tv, no crying or facial distress noted, stated she had small amount of emesis earlier, took small bites of food, tolerating sips of fluids. Medicated with Ativan 0.5mg Iv. Up to br voided 775cc medium dark yellow urine.
--- NOTE | 2020-03-18 01:21 | NUR ---
resting, eyes closed, on room air, turns self. call light at bedside
--- NOTE | 2020-03-18 03:37 | NUR ---
C/O SORE THROAT, LOZENGER GIVEN, NO FURTHER C/O EMESIS, TOLERATING SIPS OF FLUIDS.
--- NOTE | 2020-03-18 04:46 | NUR ---
Pt dry heaving, had emesis 150cc bile smelling and colored. medicated with Ativan 0.5mg IV. had been tolerating ice chips and sips of fluids earlier. no other c/o, sitting up in bed. mouth care done by self.
--- NOTE | 2020-03-18 06:05 | NUR ---
Pt has slept off and on this shift, Flat affect, ate small bites of diet, Ice chips and lozengers given per c/o sore throat. mildly effective. Had emesis 3x this shift. Was medicated with Ativan 0.5mg IV per n/v, effective. voided at begining of shift. pt stated that she voids 1-2x a day, Tachychardic but no c/o MD linda aware. Independent. Repositionsself in bed 2 SL patent, no c/o adverse reaction to abx. On room air, currently resting eyes closed, no further emesis. CBG 229, received 7 units Humalog Insulin
--- NOTE | 2020-03-18 07:34 | NUR ---
0705: Report received from Celia MCCAULEY. Pt sleeping at this time, call tellez within reach.
--- NOTE | 2020-03-18 08:33 | NUR ---
Pt sleeping when I arrived to her room. Libra awakes to voice and states she is having "throat" pain. She was medicated as ordered with tylenol and she is now having a cepacol lozenge which she had at the bedside.
--- NOTE | 2020-03-18 10:10 | NUR ---
25 YR OLD FEMALE PATIENT RETURN TO CCU FROM MED-SURG VIA BED PATIENT CO2-13. IS WITH INCREASED NAUSEA. HAS MILD ABD PAIN. IS ABLE TO FOLLOW COMMANDS AND ANSWERE QUESTIONS. PATIENT IS MOANING. SKIN WARM AND DRY. LR BOLUS HUNG AND LANTUS 20 UNITS SQ TO BE GIVEN.
--- NOTE | 2020-03-18 10:23 | NUR ---
1020: Pt transfered to CCU and verbal report was given to Marilee Batista RN.
--- NOTE | 2020-03-18 10:30 | NUR ---
ATIVAN 1 MG IV GIVEN FOR NAUSEA.
--- NOTE | 2020-03-18 10:35 | NUR ---
REGLAN 10 MG IV GIVEN, PTIENT WITH EMESIS OF APPROX 40 ML OF BILE LIKE STOMACH CONTENTS.
--- NOTE | 2020-03-18 12:00 | NUR ---
VERY RESTFUL SINCE BEING MEDICATED WITH REGLAN AND ATIVAN. ASSESSMENT DONE. IS VERY DROWSY. INSULIN GTT INFUSING AT 2.8 UNITS. IVF LR AT 125 INFUSING. REMAINS NPO. IS ON Q 1 HR ACCUCHECKS.
--- NOTE | 2020-03-18 14:30 | NUR ---
HAS BEEN SLEEPING, NO DISTRESS NOTED. INSULIN GTT INFUISNG AT 2.4 UNITS HR.
--- NOTE | 2020-03-18 15:30 | NUR ---
ENC TO ATTEMPT TO VOID. UP TO COMMODE. IS STABLE ON FEET. DENEIS NAUSEA. UNABLE TO VOID. PERIOD STARTED. TYRA PAD GIVEN. AWAITING URINATION TO SEND TO LAB FOR CLYDIMA TESTING.
--- NOTE | 2020-03-18 16:45 | NUR ---
LABS DRAWN. PATIENT HAS BEEN ALSEEP.
--- NOTE | 2020-03-18 17:15 | NUR ---
WOKE PATIENT TO ASK HER IF SHE WOULD TRY TO VOID. PATIENT DENIES NEED TO URINATE. LAST VOID WAS AT APPROX 1000 AM TODAY, VOIDED 1000ML AT THAT TIME. NO FUTHER CHANGES,
--- NOTE | 2020-03-18 18:15 | NUR ---
Maida RASMUSSEN HUNG ORDERED,K+ 3.5. REMAINS ON Q 1 HR ACCHCHECKS.
--- NOTE | 2020-03-18 20:16 | NUR ---
AWAKENS EASILY BUT IS SOMEWHAT DROWSY. STATES GENERALLY DOESN'T FEEL WELL. NO ABD PAIN OR TENDERNESS, NO NAUSEA AT THIS TIME.
--- NOTE | 2020-03-18 20:30 | NUR ---
DR SOLIZ GIVEN UPDATE ON PT BLOOD SUGARS.
--- NOTE | 2020-03-18 22:45 | NUR ---
ABM TO BR TO VOID LARGE AMT URINE IN HAT. IS ON MENSES. SPEC SENT. ANICETO BEING UP WELL.AT 220 BS 99, WILL HOLD GTT FOR 1 HR.
--- NOTE | 2020-03-18 23:12 | NUR ---
BS 110, INSULIN GTT RESTARTED AT 0.5 UNITS/HR. IS VIDEO CHATTING WITH FRIEND.
--- NOTE | 2020-03-19 01:04 | NUR ---
CONT TO MONITOR BLOOD SUGAR,AND TITRATE INSULIN PER PROTOCOL.
--- NOTE | 2020-03-19 06:22 | CONS ---
[facility] [address] [place], [place] [address] Signed DATE OF CONSULTATION: 03/18/2020 CHIEF COMPLAINT: Distal esophageal dysphagia and epigastric abdominal pain. HISTORY OF PRESENT ILLNESS: Nader is a 25-year-old, type 1 diabetic, who has history of intermittent noncompliance. Unfortunately, she did take her long-acting insulin last night and ended up with nausea and vomiting this morning. She also complains of sore throat and distal esophageal dysphagia. She seems to be sore in the epigastric area if not the subcostal margins. She came to the emergency room and was admitted to the Internal Medicine Service. She has done well with IV fluids and her insulin drip. She was transitioned over to the medical floor, but unfortunately her blood sugars went back up into the 300s. Consequently, she has been moved back over to the ICU to be put back on her insulin drip. In the meantime, her white blood cell count was a little elevated, so she was covered with Rocephin. Chest x-ray was performed and this was unremarkable. A CT scan was also performed, and she does have a small hiatal hernia and some mild thickening in the distal-mid esophagus, most likely chronic, but could be acute. Consequently, I was asked to see her as a general surgeon on-call for upper endoscopy. It is unclear why she is not responding a little better to her treatment for the diabetic ketoacidosis and it could be that she has esophageal candidiasis. Currently, she is in the ICU, doing fine, but she was given some Ativan, so she is quite sleepy, the Ativan is for her nausea because she is anaphylactic to both promethazine and Zofran. PAST MEDICAL HISTORY: Type 1 diabetes, peripheral neuropathy, tachycardia, and cyclic vomiting syndrome. PAST SURGICAL HISTORY: None. SOCIAL HISTORY: She does not smoke. She likes marijuana. She has an occasional drink of alcohol. Apparently, she is from the [facility] out on the [facility] and her Endocrinology is in the [place] area, although she comes out to [place] from time to time and spend time to be with her girlfriend. She is employed. Her mother is Sonia Russell at ). FAMILY HISTORY: Not obtainable as the patient is on Ativan. REVIEW OF SYSTEMS: Not obtainable as the patient is on Ativan. Electronically Signed By: PATI REYES MD 03/19/20 0622 PATIENT NAME: NADER RUSSELL CONSULTATION DATE OF : [birth year] REPORT #: [id number] PHYSICIAN: PATI REYES MD PCP: NO PRIMARY CARE PHYSICIAN REPORT IS CONFIDENTIAL AND NOT TO BE RELEASED WITHOUT AUTHORIZATION [facility] [address] [place], [place] [address] Signed ALLERGIES: Promethazine and Zofran, both cause anaphylaxis. MEDICATIONS: 1. Gabapentin. 2. Reglan, insulin. 3. Duloxetine. 4. Nortriptyline. 5. Tums. PHYSICAL EXAMINATION: VITAL SIGNS: Her blood pressure 121/80, heart rate is 109, respiratory rate is 16, temperature is 98.3, and she is 97% on room air. She is 6 feet tall and 73 kg. GENERAL: Nader is a 25-year-old female, sitting supine, upright in her ICU bed. She is quite somnolent from her Ativan. She does answer appropriately, but slowly. LUNGS: Clear to auscultation bilaterally. HEART: Tachycardic. ABDOMEN: Soft, nontender. She points to the subcostal margins. She said it might be sore from all the vomiting. LABORATORY DATA: Her white blood count 11.1, hemoglobin 13, neutrophils 82. BUN 13 and creatinine 0.65. Blood sugars are running 145 up to 331. Phosphorus is good at 2.0. Magnesium borderline at 1.7. Lactic acid good at 0.8. RADIOGRAPHIC STUDIES: Chest x-ray is unremarkable. CT scan of the abdomen and pelvis shows the small hiatal hernia, some mild uaf-ww-comkea esophageal wall thickening. ASSESSMENT AND PLAN: Nader is a 25-year-old female, who is here with diabetic ketoacidosis. She has a hiatal hernia and may have some chronic inflammatory changes to the distal esophagus, for which she uses Tums as needed. Although, it could be candidiasis given her current situation, consequently I have been asked to see her for upper endoscopy. We may be able to do that later this evening or have to do it tomorrow depending on her diabetic ketoacidosis. It is not particularly emergent, we could certainly do it tomorrow. I expressed this to Nader. Unfortunately, she is a bit sedated right now with Ativan. We will have to review it again with her later. Pati Reyes MD Electronically Signed By: PATI REYES MD 03/19/20 0622 PATIENT NAME: NADER RUSSELL CONSULTATION DATE OF : [birth year] REPORT #: [id number] PHYSICIAN: PATI REYES MD PCP: NO PRIMARY CARE PHYSICIAN REPORT IS CONFIDENTIAL AND NOT TO BE RELEASED WITHOUT AUTHORIZATION [facility] [address] [place] [address] Signed ALB/MODL /[id number] cc: Pati Reyes MD Copies: PATI REYES MD ~ Electronically Signed By: PATI REYES MD 03/19/20 0622 PATIENT NAME: NADER RUSSELL CONSULTATION DATE OF : [birth year] REPORT #: [id number] PHYSICIAN: PATI REYES MD PCP: NO PRIMARY CARE PHYSICIAN REPORT IS CONFIDENTIAL AND NOT TO BE RELEASED WITHOUT AUTHORIZATION
--- NOTE | 2020-03-19 07:30 | NUR ---
REPORT RECIEVED. ASLEEP.
--- NOTE | 2020-03-19 08:58 | PATH ---
[facility] [address] [facility] [place], [place] [address] Signed ORDERING PHYSICIAN: Griffin Grayd MD PATIENT NAME: NADER DESAI GENDER: Genoveva : 1995 SPECIMEN(S): MOLECULAR PATHOLOGY RESULTS: SARS-CoV-2 Not Detected ADDITIONAL NOTES.: The [place] Fusion SARS-CoV-2 Assay is a multiplex real-time PCR (RT-PCR) in vitro diagnostic test intended for the qualitative detection of RNA from SARS-CoV-2 from individuals who meet COVID-19 clinical and/or epidemiological criteria. In general, SARS-CoV-2 RNA can be detected during the acute phase of infection. Positive results indicate the presence of SARS-CoV-2 RNA. Clinical correlation with patient history and other diagnostic information is necessary to determine patient infection status. Positive results do not rule out bacterial infection or co-infection with other viruses. Negative results do not preclude SARS-CoV-2 infection and should not be used as the sole basis for patient management decisions. Negative results must be combined with other clinical observations, patient history, and epidemiological information. The [place] Fusion SARS-CoV-2 Assay is not yet approved or cleared by the [place] FDA. When there are no FDA-approved or cleared tests available, and other criteria are met, FDA can make tests available under an emergency access mechanism called an Emergency Use Authorization (EUA). The EUA for this test is supported by the [place] of Health and Human Service's (HHS's) declaration that circumstances exist to justify the emergency use of in vitro diagnostics for the detection and/or diagnosis of the virus that causes COVID-19. This EUA will remain in effect for the duration of the COVID-19 declaration justifying emergency of IVDs, unless it is terminated or revoked by FDA, after which the test may no longer be used. The [place] Fusion SARS-CoV-2 Assay is for use only under EUA in US laboratories certified under the Clinical Laboratory Improvement Amendments of 1988 (CLIA) to perform high complexity tests. [facility] is certified under CLIA to perform high complexity PATIENT NAME: NADER DESAI PATHOLOGY DATE OF : [birth year] REPORT #: [id number] PHYSICIAN: AMOR FOWLER PCP: NO PRIMARY CARE PHYSICIAN REPORT IS CONFIDENTIAL AND NOT TO BE RELEASED WITHOUT AUTHORIZATION [address] [address] Signed clinical laboratory testing. PERFORMING LABORATORY.: Molecular testing was performed by [facility] [facility] [place] [address] (Waste Treatment Operator: Akil Browne D.O.; CLIA#: [id number]) Diagnostician: System Interface Pathologist Electronically Signed 03/19/2020 Copies: ~ PATIENT NAME: NADER DESAI PATHOLOGY DATE OF : [birth year] REPORT #: [id number] PHYSICIAN: AMOR FOWLER PCP: NO PRIMARY CARE PHYSICIAN REPORT IS CONFIDENTIAL AND NOT TO BE RELEASED WITHOUT AUTHORIZATION
--- NOTE | 2020-03-19 09:30 | NUR ---
ASSESSMENT DONE. REMANS ON ACCUCHECK Q 1 HR. IN ON INSULIN GTT. CONTINUE TO TITRATED ACCORDING TO ACCUCHECK. PLAN FOR EGD LATER THIS AFTERNOON. PATIENT IS AWARE.
--- NOTE | 2020-03-19 10:00 | NUR ---
Maida RASMUSSEN HUNG PER ORDERS.
--- NOTE | 2020-03-19 10:41 | NUR ---
PATIENT SLEEPING. DID NOT AWAKEN TO NAME. WILL CHECK BACK LATER.
--- NOTE | 2020-03-19 12:00 | NUR ---
NO CHANGES. K RIDER CONTINUE TO INFUSE.
[2020-03-19] MEDS ORDERED: TRESIBA FL100 UNIT/1 SUB-Q (14:00)
[2020-03-19] MEDS ORDERED: B-6200 MG PO (14:01)
--- NOTE | 2020-03-19 14:14 | NUR ---
RN ANGIE REQUESTED I LET PT SLEEP. WILL CHECK BACK AGAIN
--- NOTE | 2020-03-19 14:26 | NUR ---
RESTFUL. DENIES NAUSEA OR PAIN.
--- NOTE | 2020-03-19 16:00 | NUR ---
ASSESSMENT DONE. DENIES PAIN OR NAUSEA. CONTINUES ON Q 1 HR ACCUCHECKS WITH TITRATION OF INSULIN GTT.
--- NOTE | 2020-03-19 16:52 | NUR ---
TO OR VIA STRETCHER. LR TO HUNG. INSULIN GTT ON HOLD.
--- NOTE | 2020-03-19 17:18 | NUR ---
03/19/20 1718 Melony Swann 1706- PT ARRIVES TO PACU NONAROUSABLE TO NOXIOUS STIMULI WITH AN OPA IN PLACE. PT ALSO NEEDING A CHIN LIFT BY ANOTHER RN. OXYGEN SAT HIGH 90'S TO 100% ON 10L VIA MASK. RESP EVEN AND UNLABORED. 1707- OXYGEN TITRATED DOWN TO 6L VIA MASK. OXYGEN SAT REMAINS HIGH 90'S TO 100% ON THE 6L VIA MASK. 1714- PT AROUSABLE AND ABLE TO FOLLOW COMMANDS. PT IS ABLE TO OPEN HER MOUTH AND OPA REMOVED BY [address] RN. 1716- OXYGEN TITRATED OFF.
--- NOTE | 2020-03-19 17:20 | NUR ---
RETURNED TO CCU. IS AWAKE AND ALERT. AMBULATED TO BR TO EXPELL SMALL STOOL. IS STABLE ON FEET. REPORT RECIEVED FROM OTOLARYNGOLOGY NURSE. IVF/INSULIN GTT RESUMED.
--- NOTE | 2020-03-19 18:00 | NUR ---
LANTUS 27 UNITS SQ GIVEN AND HUMALOG 3 UNITS SQ GIVEN. WILL DC INSULIN GTT AT 1900. PER ORDERS. DINNER ORDERED.
--- NOTE | 2020-03-19 18:30 | NUR ---
DR. SOLIZ UPDATED ON PATIENT CONDITION. NO FUTHER ORDERS AT THIS TIME. PATIENT TAKING DINNER.
--- NOTE | 2020-03-19 19:04 | NUR ---
TOOK DINNER WELL. DENIES NAUSEA. IVF AND INSULIN GTT DC'D. REPORT TO NEXT SHIFT. NO CHANGES.
--- NOTE | 2020-03-19 20:15 | NUR ---
PT RESTING IN BED WATCHING SHOW ON LAPTOP. STATES IS FEELING BETTER, NO EPGASTRIC/ABD DISCOMFORT. BP 144/100, RECHECKED AND 141/94. HR 70-80'S. DR SOLIZ CALLED AND ORDER RECIEVED TO RESTART LOPRESSOR 12.5MG PO BID.
--- NOTE | 2020-03-19 22:00 | NUR ---
RESTING, NO CHANGE.
--- NOTE | 2020-03-20 00:22 | NUR ---
AWAKENED FOR ASSESSMENT. NO C/O. AMB TO BR TO VOID, ANICETO WELL. CONT TO BE ON MENSES.
--- NOTE | 2020-03-20 02:19 | NUR ---
CONT TO SLEEP. HR 70'S.
--- NOTE | 2020-03-20 04:30 | NUR ---
CONT TO SLEEP, NO CHANGE.
--- NOTE | 2020-03-20 05:20 | NUR ---
LAB PERSONEL IN TO AWAKEN PT FOR LAB DRAW. ASSESSMENT DONE. PT STATES SLEPT WELL AND LOOKING FORWARD TO GOING BACK TO SLEEP. NO C/O.
--- NOTE | 2020-03-20 06:12 | OR ---
[facility] [address] [place], [place] [address] Signed DATE OF OPERATION: 03/19/2020 SURGEON: Pati Parks MD PREOPERATIVE DIAGNOSES: 1. Esophageal dysphagia. 2. Esophageal thickening on CT scan. 3. Small hiatal hernia. 4. Nausea and vomiting. 5. Diabetic ketoacidosis. POSTOPERATIVE DIAGNOSES: 1. Small hiatal hernia. 2. Moderate diffuse gastritis. 3. Esophagitis (candidiasis). PROCEDURES: EGD with CLOtest and biopsies of the antrum and esophagus. ESTIMATED BLOOD LOSS: None. INDICATIONS: Libra is a 25-year-old female, who has been admitted to the Internal Medicine Service for her diabetic ketoacidosis. She has been complaining of distal esophageal dysphagia. CT scan was done and it showed a small hiatal hernia with some mild thickening of the esophagus distally. I has been asked to see her as a general surgeon travel accommodation inspector for upper endoscopy with respect to the above. In the meantime, she was prophylactically started on nystatin swish and swallow. She said she is already feeling better. I had reviewed with Libra the nature of an upper endoscopy. We reviewed there is risk including, but not limited to gas bloating, crampy abdominal pain, bleeding, perforation requiring surgery, and missed diagnosis. We also reviewed the need for IV conscious sedation. She had expressed understanding and wished to proceed. PROCEDURE IN DETAIL: Libra was taken into our endoscopy suite and placed in a supine semi-recumbent position. Given her diabetic ketoacidosis, we did have an anesthesia provider help us with increased monitoring sedation with propofol. A bite block was utilized for the case. She was given propofol IV. After this, the adult gastroscope was introduced and advanced out into the third portion of the duodenum under direct visualization camera Electronically Signed By: PATI PARKS MD 03/20/20 0612 PATIENT NAME: LIBRA DESAI OPERATIVE REPORT DATE OF : [birth year] REPORT #: [id number] PHYSICIAN: PATI PARKS MD PCP: NO PRIMARY CARE PHYSICIAN REPORT IS CONFIDENTIAL AND NOT TO BE RELEASED WITHOUT AUTHORIZATION [facility] [address] [place], [place] [address] Signed without difficulty. The duodenum and pyloric channel were unremarkable. The stomach showed moderate erythematous changes consistent with gastritis. We took a biopsy of the antrum for CLOtest as well as pathologic review. We saw no ulcerations in the pyloric bulb or the antrum. Upon retroflexion of scope, she does have just a small hiatal hernia. Although, it would be quite small. The scope was withdrawn up through the area of the GE junction, which was compliant without stricture. She clearly has candidiasis from the GE junction up to at least the mid esophagus. We went ahead and took a couple of biopsies of the esophagus for pathologic review. After this, the gas was suctioned out and the gastroscope was removed. Libra tolerated the procedure quite well. Pati Parks MD ALB/MODL /[id number] cc: Pati Parks MD Copies: PATI PARKS MD ~ Electronically Signed By: PATI PARKS MD 03/20/20 0612 PATIENT NAME: LIBRA DESAI OPERATIVE REPORT DATE OF : [birth year] REPORT #: [id number] PHYSICIAN: PATI PARKS MD PCP: NO PRIMARY CARE PHYSICIAN REPORT IS CONFIDENTIAL AND NOT TO BE RELEASED WITHOUT AUTHORIZATION
--- NOTE | 2020-03-20 07:10 | NUR ---
HANDOFF REPORT RECEIVED FROM BANQUET MANAGER RN.
--- NOTE | 2020-03-20 08:00 | NUR ---
PT RESTING IN BED. PT ON ROOM AIR, LUNG SOUNDS CLEAR, O2 SATS 98%, DENIES SOB. PT DENIES PAIN, DENIES NAUSEA. PT BG 120, SS HUMALOG HELD, BREAKFAST ORDERED, BOWEL TONES ACTIVE. CMS INTACT, WITHOUT EDEMA, CAP REFILL BRISK. IV SL X2, FLUSHED AND PATENT. VSS. DISCUSSED PLAN OF CARE FOR THE DAY, PT FEELING BETTER AND HOPING TO DISCHARGE. PT STATES SHE HAS BEEN SEEN AT [facility].
--- NOTE | 2020-03-20 08:00 | NUR ---
Spoke with Libra. She lives with her roommate who will assist her if needed. Pt states she is independent. Uses [employer]. Does not use any DME. Denies needs to go home. Friend will pick her up and take her home. Pt plans to dc to home today.
--- NOTE | 2020-03-20 08:59 | NUR ---
MORNING MEDICATIONS ADMINISTERED PER EMAR. PT RESTING IN BED, BREAKFAST AT BEDSIDE. PT DENIES OTHER NEEDS AT THIS TIME.
[2020-03-20] MEDS ORDERED: FLUCONAZOLE200 MG PO (10:59)
[2020-03-20] MEDS ORDERED: METOPROLOL SUCC25 MG PO (11:00)
[2020-03-20] MEDS ORDERED: PROTONIX40 MG PO (11:09)
--- NOTE | 2020-03-20 12:12 | NUR ---
DISCHARGE INSTRUCTIONS COMPLETED WITH PT, PT PROVIDED WITH LAB FORM TO HAVE LABS DRAWN ON THURSDAY. VSS. IV CATH IN RIGHT ARM REMOVED. MAG RIDER INFUSING TO LEFT ARM, WILL DC IV AFTER IT IS COMPLETED AND PT WILL GET DRESSED. PT DENIES OTHER NEEDS AT THIS TIME. PT WANTING TO EACH LUNCH AT HOME.
--- NOTE | 2020-03-20 14:03 | NUR ---
CALL BACK RECEIVED NIDHI BUTLER FOR FOLLOW UP APPOINTMENT. SCHEDULED FOR 03/26/20 AT 11 AM. PT WILL NEED TO HAVE LABS DRAWN AT [facility] ON THURSDAY [facility] BE OPEN. CALL PLACED TO NADER, MESSAGE LEFT TO RETURN CALL.
--- NOTE | 2020-03-20 17:53 | NUR ---
PT HAS NOT RETURNED CALL, ANOTHER CALL WAS MDE TO [phone] THIS NUMBER WAS PROVIDED DIRECTLY FROM PT BEFORE DISCHARGE. MESSAGE LEFT ABOUT APPOINTMENT FOR FOLLOW UP ON Mar AT 11 AM AT [facility] AND THAT PT WILL NEED TO HAVE LABS DRAWN AT [facility] THIS THURSDAY [facility] WILL NOT BE OPEN.
--- NOTE | 2020-03-21 17:00 | PATH ---
[facility] [address] [place], [place] [address] Signed SPECIMEN(S): A ANTRUM/PYLORUS SPECIMEN(S): B LOWER ESOPHAGUS SPECIMEN SOURCE: A. ANTRUM/PYLORUS B. LOWER ESOPHAGUS CLINICAL HISTORY: Dysphagia. Postop: Gastritis, esophagitis, candidiasis. MICROSCOPIC DESCRIPTION: Histologic sections of all submitted blocks are examined by light microscopy. These findings, together with the gross examination, support the pathologic diagnosis. FINAL PATHOLOGIC DIAGNOSIS: A. Stomach, antrum, biopsy: - Antral mucosa with chronic, inactive gastritis. - Negative for Helicobacter organisms. - Negative for dysplasia or malignancy. B. Esophagus, lower, biopsy: - Acute esophagitis with fragments of ulcer. - Negative for fungal organisms. - Negative for intestinal metaplasia, dysplasia, or malignancy. COMMENT: Regarding specimen A: An H. pylori immunohistochemical stain (with appropriately staining controls) for is negative for fungal organisms. Regarding specimen B: No viral cytopathic changes are seen on HE stain. A PAS/D stain for fungus (with appropriately staining controls) is negative for fungal organisms. NAL:cml:C2NR GROSS DESCRIPTION: Two specimens are received in two containers, labeled "KP." A. The specimen, labeled "KP, antrum biopsy," is received in formalin and consists of one gimenez soft tissue fragment that measures 0.3 cm in greatest dimension. The specimen is entirely submitted in cassette (A1). B. The specimen, labeled "KP, lower esophagus biopsy," is received in formalin and consists of two gimenez soft tissue fragments that measure 0.2 cm in greatest dimension. The specimen is entirely PATIENT NAME: NADER DESAI PATHOLOGY DATE OF : [birth year] REPORT #: [id number] PHYSICIAN: AMOR PATHOLOGY PCP: [facility] REPORT IS CONFIDENTIAL AND NOT TO BE RELEASED WITHOUT AUTHORIZATION [facility] [address] [place], [place] [address] Signed submitted in cassette (B1). JS (under the direct supervision of a pathologist) The Gross Description was prepared using a voice recognition system. The report was reviewed for accuracy; however, sound-alike word errors, addition and/or deletions may occur. If there is any question about this report, please contact Client Services. ADDITIONAL NOTES: Immunohistochemical and/or in situ hybridization studies were performed on this case with the appropriate positive controls that react as expected. This test was developed and its performance characteristics determined by [facility]. It has not been cleared or approved by the U.S. Food and Drug Administration. The FDA has determined that such clearance or approval is not necessary. This test is used for clinical purposes. It should not be regarded as investigational or for research. [facility] is certified under the Clinical Laboratory Improvement Amendments of 1988 (CLIA) as qualified to perform high complexity clinical laboratory testing. PERFORMING LABORATORY: The technical component was performed by [facility], [address] [place] [id number] ([employer]: Pepper Schmidt MD; CLIA# [id number]). [facility], [address] [address] (CLIA# [id number]). Diagnostician: Sabrina Rivas MD Pathologist Electronically Signed 03/21/2020 Copies: ~ PATIENT NAME: NADER DESAI PATHOLOGY DATE OF : [birth year] REPORT #: [id number] PHYSICIAN: AMOR PATHOLOGY PCP: [facility] REPORT IS CONFIDENTIAL AND NOT TO BE RELEASED WITHOUT AUTHORIZATION
== END 2020-03-20 12:35 | disposition home or self-care (01) | DRG 638 ==
LOC: ED 13:02 → CCU 13:04 → MS 03-17 18:40 → CCU 03-18 09:58
PROVIDERS: Colon & Rectal Surgery; ADMIT Student in an Organized Health Care Education/Training Program
PROC: 0DB68ZX Excision of Stomach, Via Natural or Artificial Opening Endoscopic, Diagnostic (ICD-10-PCS; 2020-03-19)
PROC: 0DB58ZX Excision of Esophagus, Via Natural or Artificial Opening Endoscopic, Diagnostic (ICD-10-PCS; principal; 2020-03-19 10:00)
DX: E10.10 Type 1 diabetes mellitus with ketoacidosis without coma (principal); B37.81 Candidal esophagitis; Z20.828 Contact with and (suspected) exposure to other viral communicable diseases; E10.42 Type 1 diabetes mellitus with diabetic polyneuropathy; K29.70 Gastritis, unspecified, without bleeding; K44.9 Diaphragmatic hernia without obstruction or gangrene; R00.0 Tachycardia, unspecified; Z88.8 Allergy status to other drugs, medicaments and biological substances; Z79.899 Other long term (current) drug therapy; Z79.4 Long term (current) use of insulin
CPT/HCPCS: 36415; 71045; 74177; 80048; 80053; 80076; 81001; 82010; 82374; 82800; 82977; 83605; 83615; 83735; 83930; 84100; 84703; 85025; 86677; 86703; 87081; 87491; 87591; 87880; 93005; 93010; 96361; 96366; 96367; 96368; 96374; 96375; 96376; 99285-25; C9113; C9803; G0378; J0696; J1200; J1815; J2060; J2704; J2765; J3475; J3480; J7030; J7042; J7060; J7121; Q9967

== ENCOUNTER 2020-07-25 19:01 | Emergency (ER) | payer OTHER ==
[~2020-07-25] VITALS: Ht 182.9 cm; Wt 70.4 kg
[~2020-07-25 19:01] MED LIST changes: +B-6200 MG PO; +FLUCONAZOLE200 MG PO; +METOPROLOL SUCC25 MG PO; +PROTONIX40 MG PO; +TRESIBA FL100 UNIT/1 SUB-Q
--- OUTSIDE RECORDS SUMMARY | 2020-07-25 19:04 | XMS ---
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 Care History Medical/Surgical 09/19/2019 [facility] - [facility] CALLED PATIENT 2X-LEFT PATIENT A VOICEMAIL. - PATIENT DOES NOT HAVE A PCP- [facility] WOULD LIKE TO ASSIST PATIENT WITH PCP SET UP. - PLEASE PROVIDE [facility]-JASON- CONTACT NUMBER TO PATIENT [phone]. - NO PCP LETTER SENT TO PATIENT E.D. VISIT COUNT (12 MO.) 5 [facility] TOTAL 5 NOTE: Visits indicate total known visits. 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 - Nausea with vomiting, unspecified - Cyclical vomiting syndrome unrelated to migraine - Type 1 diabetes mellitus without complications - Allergy status to other drugs, medicaments and biological substances 09/11/2019 14:13 [facility] [place] TYPE: Emergency COMPLAINT: - SWALLOWING PROBLEM, NAUSEA 08/19/2019 08:04 [facility] [place] TYPE: Emergency COMPLAINT: - VOMITING DIAGNOSES: - Type 2 diabetes mellitus without complications - Nausea with vomiting, unspecified - Acute gastritis without bleeding - 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 - 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 - Allergy status to other drugs, medicaments and biological substances INPATIENT VISIT TRACKING (12 MO.) 03/18/2020 09:58 [facility] [place] TYPE: Critical Care COMPLAINT: - DKA DIAGNOSES: - Tachycardia, unspecified - Contact with and (suspected) exposure to other viral communicable diseases - [facility] (current) use of insulin - 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 - Gastritis, unspecified, without bleeding - Type 1 diabetes mellitus with diabetic polyneuropathy - Allergy status to other drugs, medicaments and biological substances - Diaphragmatic hernia without obstruction or gangrene - Type 1 diabetes mellitus with ketoacidosis without coma - Candidal esophagitis 09/11/2019 14:14 [facility] [place] TYPE: Observation COMPLAINT: - DEHYDRATION/TACHYCARDIA DIAGNOSES: - Other longterm (current) drug therapy - Dehydration - [facility] (current) use of insulin - Cellulitis and abscess of mouth - Tachycardia, unspecified - Nausea with vomiting, unspecified - Allergy status to other drugs, medicaments and biological substances - Patient's other noncompliance with medication regimen [email or web address]
[2020-07-25] MEDS ORDERED: NORCO 5-325 TA1 EACH PO (21:12)
[2020-07-25] MEDS ORDERED: CRUTCH1 EACH MISC (21:13)
== END 2020-07-25 21:42 | disposition home or self-care (01) ==
LOC: ED 19:01
DX: S82.832A Other fracture of upper and lower end of left fibula, initial encounter for closed fracture (principal); W17.89XA Other fall from one level to another, initial encounter; E11.9 Type 2 diabetes mellitus without complications; F17.200 Nicotine dependence, unspecified, uncomplicated; Z88.8 Allergy status to other drugs, medicaments and biological substances; Z79.899 Other long term (current) drug therapy; Z79.4 Long term (current) use of insulin
CPT/HCPCS: 73610; 99283-25